=== PATIENT | male | born 1965 | race Caucasian/White ===

== ENCOUNTER 2018-10-22 17:11 | Inpatient (IN) | payer MEDICARE, OTHER ==
[~2018-10-22] VITALS: Ht 182.9 cm; Wt 119.7 kg
--- NOTE | 2018-10-22 17:55 | NUR ---
PT BIB [facility]. ON 515 FOR DANGER TO OTHERS, PER REPORT, THREATENING STAFF. PT IS AAOX3, NOT IN RESPIRATORY DISTRESS, V/S STABLE, KEPT RESTED AND COMFORTABLE, WILL CONTINUE TO MONITOR.
--- NOTE | 2018-10-22 17:56 | NUR ---
SEEN AND EXAMINED BY .
--- NOTE | 2018-10-22 18:10 | NUR ---
ER PHLEB AT BEDSIDE FOR BLOOD DRAW.
--- NOTE | 2018-10-22 18:15 | NUR ---
URINE SPECIMEN COLLECTED AND SENT TO LAB.
[2018-10-22 18:16] LABS: BASOPHILS # (AUTO) 0.1 /CMM (0.0-0.2); EOSINOPHILS % (AUTO) 3.1 % (0.0-6.0); HEMATOCRIT 43 % (39-51); HEMOGLOBIN 14.9 g/dL (13.5-17.5); LYMPHOCYTES # (AUTO) 2.9 /CMM (0.8-4.8); MEAN CORPUSCULAR HGB CONC 34 g/dl (31.0-36.0); MEAN CORPUSCULAR VOLUME 98 fL (80-96); MONOCYTES # (AUTO) 0.8 /CMM (0.1-1.30); MONOCYTES % (AUTO) 8.4 % (2.0-12.0); NEUTROPHILS # (AUTO) 5.6 /CMM (1.8-8.9); NEUTROPHILS % (AUTO) 57.5 % (43.0-81.0); PLATELET COUNT (AUTO) 269 /CMM (150-450); RED BLOOD CELL COUNT(AUTO) 4.43 MIL/uL (4.5-6.0); WHITE BLOOD COUNT (AUTO) 9.7 K/uL (4.3-11.0)
[2018-10-22 18:20] LABS: APPEARANCE,URINE Clear (CLEAR); BILIRUBIN,URINE Negative (NEGATIVE); BLOOD, URINE Negative Ery/uL (NEGATIVE); COLOR,URINE Yellow (YELLOW); KETONES,URINE Trace (NEGATIVE); LEUKOCYTE ESTERASE ,URINE Negative (NEGATIVE); NITRITE, URINE Negative (NEGATIVE); PH,URINE 6.5 (5.0-8.0); PROTEIN,URINE Negative (NEGATIVE); UGLUCOSE 500 MG/DL mg/dL (NEGATIVE); UROBILINOGEN,URINE 0.2 EU/dL (0.2)
--- NOTE | 2018-10-22 18:22 | NUR ---
GPS 212-B
[2018-10-22 18:31] LABS: CALCIUM, SERUM 8.8 mg/dL (8.5-10.1); CARBON DIOXIDE 26 mmol/L (21-32); CHLORIDE 102 mmol/L (98-107); GLUCOSE 232 mg/dL (74-106); POTASSIUM 4.3 mmol/L (3.5-5.1); SODIUM SERUM 136 mmol/L (136-145); UREA NITROGEN, BLOOD 8 mg/dL (7-18)
[2018-10-22 18:34] LABS: ALANINE AMINOTRANSFERASE 15 U/L (12-78); ALBUMIN 3.1 g/dL (3.4-5.0); ALKALINE PHOSPHATASE 73 U/L (46-116); ASPARTATE AMINOTRANSFERASE 12 U/L (15-37); BILIRUBIN,DIRECT 0.1 mg/dL (0.0-0.2); BILIRUBIN,TOTAL 0.2 mg/dL (0.2-1.0); SALICYLATE 3.7 mg/dL (2.8-20.0)
[2018-10-22 18:35] LABS: ACETAMINOPHEN < 5 ug/ml (10-30); ALCOHOL, BLOOD < 5 mg/dL (0-0)
[2018-10-22] MEDS ORDERED: HYDR25TA4 PO (19:57)
[2018-10-22] MEDS ORDERED: SIMV20TA6 PO (19:57)
[2018-10-22] MEDS ORDERED: ALBU18HF2 INH (19:57)
[2018-10-22] MEDS ORDERED: DIVA500T2 PO (19:57)
[2018-10-22] MEDS ORDERED: DIVA250T4 PO (19:57)
[2018-10-22] MEDS ORDERED: OLAN20TA3 PO (19:57)
[2018-10-22] MEDS ORDERED: GLIP10TA11 PO (19:57)
[2018-10-22] MEDS ORDERED: METF-441 PO (19:57)
[2018-10-22] MEDS ORDERED: INSU100V30 IJ (19:57)
[2018-10-22] MEDS ORDERED: LINA145C PO (19:57)
[2018-10-22] MEDS ORDERED: OLAN5TAB3 PO (19:57)
[2018-10-22] MEDS ORDERED: CHOL200026 PO (19:57)
[2018-10-22] MEDS ORDERED: BUDE10.2 INH (19:57)
[2018-10-22] MEDS ORDERED: LISI-607 PO (19:57)
[2018-10-22] MEDS ORDERED: INSU100V7 SQ ×2 (19:57)
--- NOTE | 2018-10-22 20:12 | NUR ---
REPORT GIVEN TO OCTAVIA RODGERS FOR [facility]. PT TO 212-2
--- NOTE | 2018-10-22 20:12 | NUR ---
PT SENT UP TO UNIT WITH EMT ON WHEELCHAIR. PT IS IN STABLE CONDITION.
[2018-10-22] MEDS ORDERED: MAGNESIUM HYDROXIDE 30 ML UDC PO PRN (21:30)
[2018-10-22] MEDS ORDERED: MAG HYDROX/AL HYDROX/SIMETH 30 ML UDC PO PRN (21:30)
[2018-10-22] MEDS ORDERED: ACETAMINOPHEN 325 MG TABLET PO PRN (21:30)
[2018-10-22] MEDS ORDERED: BLOOD SUGAR DIAGNOSTIC 1 EACH STRIP IN ONE (22:00)
--- NOTE | 2018-10-22 22:30 | NUR ---
ADMITTED THIS 53 YEARS OLD MALE FROM [facility] PATIENT BROUGHT IN UNIT BY WHEEL CHAIR ACCOMPANIED BY E.R STAFF PATIENT WAS PLACED ON 5150 HOLD , DUE TO DANGERS TO OTHER, TRYING TO THREAT THE STAFF IN [facility] . PATIENT IS ALERT, ORIENTED X 4 AMBULATORY TO BATHROOM WITH STEADY GAIT UPON FACE TO FACE ASSESSMENT PATIENT DENIES ANY SI/HI AT THIS TIME ADVISEMENT EXPLAIN AND GIVE TO THE PATIENT WITH HOSPITAL HANDBOOK AND POLICY PATIENT REFUSED TO SIGN THE CONSENT PAPER, DR. LOBO AND DR. CRAWFORD WAS NOTIFY REGARDING , PATIENT ADMISSION NO BEHAVIOR PROBLEM NOTED AT THIS TIME, WILL CONTINUES TO MONITOR THE PATIENTEVERY 15 MINS AND MAKE ROUND FOR PATIENT SAFETY AND FALL .
[2018-10-22] MEDS ORDERED: DEXTROSE 50%-WATER 50 ML DISP.SYRIN IV PRN (23:00)
[2018-10-23] MEDS: BLOOD SUGAR DIAGNOSTIC 1 EACH STRIP IN SCH ×4 (07:48→21:21)
[2018-10-23] MEDS: LORAZEPAM 1 MG TABLET PO PRN ×2 (07:58→21:20)
--- NOTE | 2018-10-23 07:58 | NUR ---
GPS/RN-NOTES NOTED PATIENT PACING IN AND OUT THE ROOM SWINGING BOTH HANDS IN THE AIR. STATED " WHEN CAN I BE DISCHARGE FROM THIS PLACE". STRIPING MACHINE OPERATOR REDIRECTED PATIENT AND OFFERED ATIVAN AND AGREED. ATIVAN 1MG P.O GIVEN PRN ORDER. WILL CONT. MONITORING FOR SAFETY AND BEHAVIOR.
[2018-10-23] MEDS: NICOTINE PATCH (21MG) 21 MG PATCH.TD24 TD SCH (08:33)
[2018-10-23] MEDS: METFORMIN 850 MG TABLET PO SCH ×2 (08:33→16:15)
[2018-10-23] MEDS: glipiZIDE 10 MG TABLET PO SCH ×2 (08:33→16:15)
[2018-10-23] MEDS: LISINOPRIL (5MG) 5 MG TABLET PO SCH (08:33)
[2018-10-23] MEDS: HYDROCHLOROTHIAZIDE 25 MG TABLET PO SCH (08:34)
[2018-10-23] MEDS: INSULIN GLARGINE, 100 UNIT/ML CARTRIDGE SQ SCH ×3 (08:39→22:10)
[2018-10-23] MEDS: CHOLECALCIFEROL 1,000 UNIT TABLET (VIT D3) PO SCH (08:45)
[2018-10-23] MEDS: FLUTICASONE/VILANTEROL 1 EACH BLST.W.DEV IH SCH (08:48)
[2018-10-23] MEDS ORDERED: DIVALPROEX SODIUM 250 MG TABLET.DR PO SCH (09:00)
[2018-10-23] MEDS ORDERED: LINACLOTIDE (LINZESS) 145 MCG PO SCH (09:00)
--- NOTE | 2018-10-23 09:00 | NUR ---
GPS/RN-NOTES PATIENT LAYING IN BED INTERMITTENTLY SLEEPING. CALM,NO ACUTE DISTRESS NOTED.
--- NOTE | 2018-10-23 09:30 | NUR ---
SW received a call from Mami, zoning administrator at [facility] Address: [address], [place] [address] stating that pt cannot return to the facility due to his aggressive behavior.
--- NOTE | 2018-10-23 10:00 | NUR ---
GIRISH contacted Morelia Gaytan pts Public Guardian [phone] and left a voicemail requesting conservatorship documentation and detain and treat paperwork.
[2018-10-23 13:25] LABS: THYROID STIMULATING HORMONE 1.881 uIU/mL (0.358-3.74)
[2018-10-23] MEDS: ALBUTEROL FS 2.5 MG/0.5 ML VIAL.NEB NEB SCH ×3 (13:43→22:32)
--- NOTE | 2018-10-23 15:09 | NUR ---
GPS/RN-NOTES PATIENT'S MOTHER ESETPHANIE BARBOSA ) MADE AWARE OF PATIENT ADMISSION.
--- NOTE | 2018-10-23 15:16 | NUR ---
GROUP NOTE: SW prompted pt to attend group on 10/23/18 at 2:30pm discussing managing mental health by being compliant with medication for while they are in the hospital and after discharge, but pt declined to participate.
--- NOTE | 2018-10-23 15:24 | NUR ---
GIRISH contacted pts Mother Mary Lou [phone] and discussed pts treatment and discharge plan. Pts mother stated she was unable to assist with pts discharge as she is elderly and has medical issues of her own.
--- NOTE | 2018-10-23 15:42 | NUR ---
INITIAL DISCHARGE PLAN: Patient needs Board and Care of SNF placement as [facility] Address: [address], [place] [address] does not want to accept him back due to his aggressive behavior. SW will help form a safe and proper discharge in collaboration with MD.
[2018-10-23] MEDS: DIVALPROEX SODIUM 250 MG TABLET.DR PO SCH (16:15)
[2018-10-23] MEDS: SIMVASTATIN 20 MG TABLET PO SCH (17:29)
[2018-10-23] MEDS: INSULIN REGULAR, HUMAN 100 UNIT/ML 3 ML VIAL SQ PRN ×2 (17:30→21:23)
[2018-10-23 20:34] VITALS: BP 134/70
[2018-10-23] MEDS ORDERED: DIVALPROEX SODIUM 500 MG TABLET.DR PO SCH (22:00)
[2018-10-23] MEDS: OLANZAPINE 10 MG TABLET PO SCH (22:06)
[2018-10-23] MEDS: DIVALPROEX SODIUM 500 MG TABLET.DR PO SCH (22:06)
[2018-10-23] MEDS: TEMAZEPAM 7.5 MG CAPSULE PO PRN (23:34)
[2018-10-24] MEDS: ALBUTEROL FS 2.5 MG/0.5 ML VIAL.NEB NEB SCH ×3 (07:35→23:30)
[2018-10-24] MEDS: BLOOD SUGAR DIAGNOSTIC 1 EACH STRIP IN SCH ×4 (07:38→21:44)
[2018-10-24 08:00] VITALS: BP 130/70
[2018-10-24] MEDS: LORAZEPAM 1 MG TABLET PO PRN ×2 (08:44→14:50)
[2018-10-24] MEDS: DIVALPROEX SODIUM 250 MG TABLET.DR PO SCH ×2 (08:44→16:33)
[2018-10-24] MEDS: FLUTICASONE/VILANTEROL 1 EACH BLST.W.DEV IH SCH (08:44)
[2018-10-24] MEDS: CHOLECALCIFEROL 1,000 UNIT TABLET (VIT D3) PO SCH (08:44)
[2018-10-24] MEDS: LISINOPRIL (5MG) 5 MG TABLET PO SCH (08:45)
[2018-10-24] MEDS: HYDROCHLOROTHIAZIDE 25 MG TABLET PO SCH (08:45)
[2018-10-24] MEDS: METFORMIN 850 MG TABLET PO SCH ×2 (08:45→16:33)
[2018-10-24] MEDS: NICOTINE PATCH (21MG) 21 MG PATCH.TD24 TD SCH (08:45)
[2018-10-24] MEDS: glipiZIDE 10 MG TABLET PO SCH ×2 (08:45→16:33)
[2018-10-24] MEDS: OLANZAPINE 5 MG TABLET PO SCH (08:49)
[2018-10-24] MEDS: INSULIN GLARGINE, 100 UNIT/ML CARTRIDGE SQ SCH ×2 (09:01→21:45)
[2018-10-24 13:42] LABS: BASOPHILS # (AUTO) 0.1 /CMM (0.0-0.2); BASOPHILS % (AUTO) 1.2 % (0.0-2.0); EOSINOPHILS % (AUTO) 1.6 % (0.0-6.0); HEMATOCRIT 48 % (39-51); HEMOGLOBIN 16.4 g/dL (13.5-17.5); LYMPHOCYTES # (AUTO) 2.6 /CMM (0.8-4.8); LYMPHOCYTES % (AUTO) 24.6 % (20.0-44.0); MEAN CORPUSCULAR HGB CONC 34 g/dl (31.0-36.0); MEAN CORPUSCULAR VOLUME 96 fL (80-96); MONOCYTES # (AUTO) 0.8 /CMM (0.1-1.30); MONOCYTES % (AUTO) 7.5 % (2.0-12.0); NEUTROPHILS % (AUTO) 65.1 % (43.0-81.0); PLATELET COUNT (AUTO) 279 /CMM (150-450); RED BLOOD CELL COUNT(AUTO) 4.96 MIL/uL (4.5-6.0); WHITE BLOOD COUNT (AUTO) 10.7 K/uL (4.3-11.0)
[2018-10-24 13:57] LABS: BILIRUBIN,TOTAL 0.5 mg/dL (0.2-1.0); CALCIUM, SERUM 9.4 mg/dL (8.5-10.1); CREATININE 0.9 mg/dL (0.6-1.3); POTASSIUM 4.1 mmol/L (3.5-5.1); TOTAL PROTEIN, SERUM 7.2 g/dL (6.4-8.2)
--- NOTE | 2018-10-24 14:46 | NUR ---
DR. LOBO GAVE AN ORDER TO CHANGE STATUS TO CONSERVATORSHIP.
--- NOTE | 2018-10-24 14:50 | NUR ---
GPS/RN-NOTES PATIENT PACING IN THE UNIT, RESTLESS,ANXIOUS ATIVAN 1MG P.O GIVEN PRN ORDER. WILL CONT. MONITORING FOR SAFETY AND BEHAVIOR.
[2018-10-24 16:00] VITALS: BP 125/82
[2018-10-24] MEDS: INSULIN REGULAR, HUMAN 100 UNIT/ML 3 ML VIAL SQ PRN (16:46)
[2018-10-24] MEDS: SIMVASTATIN 20 MG TABLET PO SCH (17:38)
[2018-10-24 20:17] VITALS: BP 116/44
[2018-10-24] MEDS: DIVALPROEX SODIUM 500 MG TABLET.DR PO SCH (21:44)
[2018-10-24] MEDS: OLANZAPINE 10 MG TABLET PO SCH (21:44)
[2018-10-25] MEDS: ALBUTEROL FS 2.5 MG/0.5 ML VIAL.NEB NEB SCH ×3 (07:35→23:30)
[2018-10-25] MEDS: BLOOD SUGAR DIAGNOSTIC 1 EACH STRIP IN SCH ×4 (07:45→21:56)
[2018-10-25 08:00] VITALS: BP 107/55
[2018-10-25] MEDS: FLUTICASONE/VILANTEROL 1 EACH BLST.W.DEV IH SCH (08:41)
[2018-10-25] MEDS: glipiZIDE 10 MG TABLET PO SCH ×2 (08:43→16:16)
[2018-10-25] MEDS: INSULIN GLARGINE, 100 UNIT/ML CARTRIDGE SQ SCH ×2 (08:43→21:56)
[2018-10-25] MEDS: NICOTINE PATCH (21MG) 21 MG PATCH.TD24 TD SCH (08:44)
[2018-10-25] MEDS: DIVALPROEX SODIUM 250 MG TABLET.DR PO SCH ×2 (08:44→16:17)
[2018-10-25] MEDS: CHOLECALCIFEROL 1,000 UNIT TABLET (VIT D3) PO SCH (08:44)
[2018-10-25] MEDS: METFORMIN 850 MG TABLET PO SCH ×2 (08:44→16:17)
[2018-10-25] MEDS: LORAZEPAM 1 MG TABLET PO PRN ×2 (08:45→16:16)
[2018-10-25] MEDS: HYDROCHLOROTHIAZIDE 25 MG TABLET PO SCH (08:47)
[2018-10-25] MEDS: LISINOPRIL (5MG) 5 MG TABLET PO SCH (08:48)
[2018-10-25] MEDS: OLANZAPINE 5 MG TABLET PO SCH (08:52)
--- NOTE | 2018-10-25 09:29 | NUR ---
GPS RN NOTES PATIENT PACING IN THE UNIT, RESTLESS, ANXIOUS, AND YELLING AT STAFF. ATIVAN 1MG P.O GIVEN PRN ORDER. WILL CONTINUE MONITORING FOR SAFETY AND BEHAVIOR.
[2018-10-25] MEDS: INSULIN REGULAR, HUMAN 100 UNIT/ML 3 ML VIAL SQ PRN ×3 (11:55→21:58)
[2018-10-25 16:00] VITALS: BP 121/67
[2018-10-25] MEDS: SIMVASTATIN 20 MG TABLET PO SCH (17:04)
[2018-10-25 20:00] VITALS: BP 137/66
[2018-10-25] MEDS: OLANZAPINE 10 MG TABLET PO SCH (21:55)
[2018-10-25] MEDS: DIVALPROEX SODIUM 500 MG TABLET.DR PO SCH (21:55)
[2018-10-26] MEDS: TEMAZEPAM 7.5 MG CAPSULE PO PRN (02:01)
[2018-10-26] MEDS: ALBUTEROL FS 2.5 MG/0.5 ML VIAL.NEB NEB SCH ×3 (08:30→23:30)
[2018-10-26] MEDS: CHOLECALCIFEROL 1,000 UNIT TABLET (VIT D3) PO SCH (08:41)
[2018-10-26] MEDS: METFORMIN 850 MG TABLET PO SCH ×2 (08:41→17:15)
[2018-10-26] MEDS: OLANZAPINE 5 MG TABLET PO SCH ×2 (08:41→17:15)
[2018-10-26] MEDS: glipiZIDE 10 MG TABLET PO SCH ×2 (08:41→17:15)
[2018-10-26] MEDS: BLOOD SUGAR DIAGNOSTIC 1 EACH STRIP IN SCH ×4 (08:41→21:25)
[2018-10-26] MEDS: NICOTINE PATCH (21MG) 21 MG PATCH.TD24 TD SCH (08:42)
[2018-10-26] MEDS: DIVALPROEX SODIUM 250 MG TABLET.DR PO SCH ×2 (08:42→17:15)
[2018-10-26] MEDS: HYDROCHLOROTHIAZIDE 25 MG TABLET PO SCH (08:49)
[2018-10-26] MEDS: FLUTICASONE/VILANTEROL 1 EACH BLST.W.DEV IH SCH (08:50)
[2018-10-26] MEDS: LORAZEPAM 1 MG TABLET PO PRN (08:50)
--- NOTE | 2018-10-26 08:50 | NUR ---
rn notes administered Ativan 1 mg po prn for anxiety, irritable, per patient request, v/s taken bp 113/78, p-102, continued monitoring.
[2018-10-26] MEDS: LISINOPRIL (5MG) 5 MG TABLET PO SCH (08:52)
[2018-10-26] MEDS: INSULIN GLARGINE, 100 UNIT/ML CARTRIDGE SQ SCH ×2 (09:00→21:30)
--- NOTE | 2018-10-26 14:17 | NUR ---
RN NOTES PATIENT VERY ANXIOUS WALKING UP AND DOWN IN THE HALLWAY, IRRITABLE, TALKING SELF, KEEP ASKING COFFEE , UNPREDICTABLE. PER PSYCHIATRIST Dr ZARATE VERBALLY ORDERED ATIVAN 1 MG PO PRN X1 NOW. ORDER TAKEN AND CARRIED OUT.
--- NOTE | 2018-10-26 14:24 | NUR ---
RN NOTES ADMINISTERED ATIVAN 1 MG PO TIME ONE NOW FOR PARANOIA, ANXIETY PER PSYCHIATRISTS ORDER. PATIENT REFUSED V/S TO BE TAKEN. CONTINUED MONITORING.
[2018-10-26] MEDS ORDERED: LORAZEPAM 1 MG TABLET PO ONE (14:30)
[2018-10-26 16:00] VITALS: BP 108/84
[2018-10-26] MEDS: INSULIN REGULAR, HUMAN 100 UNIT/ML 3 ML VIAL SQ PRN ×2 (17:19→21:29)
[2018-10-26] MEDS ORDERED: FIXODENT 1 EA TUBE MM PRN (17:30)
[2018-10-26] MEDS: SIMVASTATIN 20 MG TABLET PO SCH (18:29)
[2018-10-26 20:04] VITALS: BP 120/80
[2018-10-26] MEDS: OLANZAPINE 10 MG TABLET PO SCH (21:26)
[2018-10-26] MEDS: DIVALPROEX SODIUM 500 MG TABLET.DR PO SCH (21:26)
--- NOTE | 2018-10-26 23:40 | NUR ---
GPS RN NOTES:PT. BS 155 MG/DL, PT. REFUSED TO SCHEDULE LANTUS INSULLIN , ENCOURAGED , EXPLAINED RISKS AND BENEFITS, , STRONGLY REFUSED. PER PT.MY BS IS FINE ,I DONT WANT TAKING LANTUS INSULLIN.
--- NOTE | 2018-10-27 01:10 | NUR ---
GPS RN NOTES: PT. REFUSED WEEKLY SKIN REASSMENT AND PICTURES , PER PT.MY SKIN IS OK , NO NEEDS TO CHECK, ENCOURAGED EXPLINED RISKS AND BENEFITS , STILL REFUSED.
[2018-10-27] MEDS: ALBUTEROL FS 2.5 MG/0.5 ML VIAL.NEB NEB SCH ×3 (07:35→23:30)
[2018-10-27 08:00] VITALS: BP 121/84
[2018-10-27] MEDS: BLOOD SUGAR DIAGNOSTIC 1 EACH STRIP IN SCH ×4 (08:49→22:15)
[2018-10-27] MEDS: INSULIN REGULAR, HUMAN 100 UNIT/ML 3 ML VIAL SQ PRN ×2 (08:49→22:23)
[2018-10-27] MEDS: CHOLECALCIFEROL 1,000 UNIT TABLET (VIT D3) PO SCH (08:59)
[2018-10-27] MEDS: HYDROCHLOROTHIAZIDE 25 MG TABLET PO SCH (08:59)
[2018-10-27] MEDS: OLANZAPINE 5 MG TABLET PO SCH ×2 (08:59→17:04)
[2018-10-27] MEDS: NICOTINE PATCH (21MG) 21 MG PATCH.TD24 TD SCH (08:59)
[2018-10-27] MEDS: DIVALPROEX SODIUM 250 MG TABLET.DR PO SCH ×2 (08:59→17:05)
[2018-10-27] MEDS: glipiZIDE 10 MG TABLET PO SCH ×2 (08:59→17:05)
[2018-10-27] MEDS: METFORMIN 850 MG TABLET PO SCH ×2 (09:00→17:05)
[2018-10-27] MEDS: LISINOPRIL (5MG) 5 MG TABLET PO SCH (09:00)
[2018-10-27] MEDS: FLUTICASONE/VILANTEROL 1 EACH BLST.W.DEV IH SCH (09:04)
[2018-10-27] MEDS: INSULIN GLARGINE, 100 UNIT/ML CARTRIDGE SQ SCH ×2 (09:08→22:20)
[2018-10-27] MEDS: LORAZEPAM 1 MG TABLET PO PRN ×3 (10:06→19:40)
--- NOTE | 2018-10-27 11:37 | NUR ---
GIRISH faxed referral to [facility] Address: [address] [place] [address] for board and care placement.
--- NOTE | 2018-10-27 11:40 | NUR ---
GIRISH faxed SNF referral to [facility] Address: [address] [place] [address] Fax: [phone] for review.
--- NOTE | 2018-10-27 13:00 | NUR ---
SW contacted [facility] Address: [facility], [address] [place] [address] per pts request and spoke with Ulises, social work administrator who stated there are no beds available.
--- NOTE | 2018-10-27 13:03 | NUR ---
INDIVIDUAL COUNSELING: SW spoke with pt regarding his discharge plan, pt wants to be discharged to a sober living and SW explained that due to him being under public guardianship he is unable to go to a sober living. SW explained that he can either be discharged to a board and care for a SNF. Pt agreed.
--- NOTE | 2018-10-27 13:31 | NUR ---
SW received a call from Dorene, cancer program coordinator at [facility] Address: [address] [place] [address] stating pt has been accepted to the facility.
[2018-10-27 16:00] VITALS: BP 101/70
[2018-10-27] MEDS: SIMVASTATIN 20 MG TABLET PO SCH (17:04)
[2018-10-27 19:51] VITALS: BP 99/53
[2018-10-27] MEDS: OLANZAPINE 10 MG TABLET PO SCH (21:31)
[2018-10-27] MEDS: DIVALPROEX SODIUM 500 MG TABLET.DR PO SCH (21:31)
[2018-10-27] MEDS: TEMAZEPAM 7.5 MG CAPSULE PO PRN (21:31)
[2018-10-28] MEDS: ALBUTEROL FS 2.5 MG/0.5 ML VIAL.NEB NEB SCH ×3 (07:06→23:30)
[2018-10-28] MEDS: BLOOD SUGAR DIAGNOSTIC 1 EACH STRIP IN SCH ×4 (07:30→22:31)
[2018-10-28 08:00] VITALS: BP 127/79
[2018-10-28] MEDS: INSULIN GLARGINE, 100 UNIT/ML CARTRIDGE SQ SCH ×2 (09:00→22:30)
[2018-10-28] MEDS: DIVALPROEX SODIUM 250 MG TABLET.DR PO SCH ×2 (09:00→17:00)
[2018-10-28] MEDS: METFORMIN 850 MG TABLET PO SCH ×2 (09:00→17:00)
[2018-10-28] MEDS: NICOTINE PATCH (21MG) 21 MG PATCH.TD24 TD SCH (09:00)
[2018-10-28] MEDS: glipiZIDE 10 MG TABLET PO SCH ×2 (09:00→17:00)
[2018-10-28] MEDS: OLANZAPINE 5 MG TABLET PO SCH ×2 (09:00→17:00)
[2018-10-28] MEDS: HYDROCHLOROTHIAZIDE 25 MG TABLET PO SCH (09:00)
[2018-10-28] MEDS: LISINOPRIL (5MG) 5 MG TABLET PO SCH (09:00)
[2018-10-28] MEDS: CHOLECALCIFEROL 1,000 UNIT TABLET (VIT D3) PO SCH (09:00)
[2018-10-28] MEDS: FLUTICASONE/VILANTEROL 1 EACH BLST.W.DEV IH SCH (09:00)
[2018-10-28 16:00] VITALS: BP 116/80
[2018-10-28] MEDS: INSULIN REGULAR, HUMAN 100 UNIT/ML 3 ML VIAL SQ PRN (18:06)
[2018-10-28] MEDS: SIMVASTATIN 20 MG TABLET PO SCH (18:07)
[2018-10-28 21:33] VITALS: BP 120/77
[2018-10-28] MEDS: OLANZAPINE 10 MG TABLET PO SCH (22:31)
[2018-10-29] MEDS: BLOOD SUGAR DIAGNOSTIC 1 EACH STRIP IN SCH ×4 (07:31→21:04)
[2018-10-29] MEDS: ALBUTEROL FS 2.5 MG/0.5 ML VIAL.NEB NEB SCH ×3 (07:35→23:30)
[2018-10-29 08:00] VITALS: BP 100/59
[2018-10-29] MEDS: CHOLECALCIFEROL 1,000 UNIT TABLET (VIT D3) PO SCH (08:09)
[2018-10-29] MEDS: DIVALPROEX SODIUM 500 MG TABLET.DR PO SCH ×3 (08:10→21:09)
--- NOTE | 2018-10-29 08:10 | NUR ---
GPS/RN - Accu-check Accu-check done noted with blood glucose 56 mg/dL at 08:09. Patient is asymptomatic, A/O x 4, denies palpitations, shakiness, lightheadedness, sweating. Patient was given orange juice and eating breakfast at this time. Will re-check blood sugar within one hour.
[2018-10-29] MEDS: NICOTINE PATCH (21MG) 21 MG PATCH.TD24 TD SCH (08:51)
[2018-10-29] MEDS: OLANZAPINE 5 MG TABLET PO SCH ×2 (08:51→17:01)
[2018-10-29] MEDS: METFORMIN 850 MG TABLET PO SCH ×2 (08:52→17:01)
[2018-10-29] MEDS: HYDROCHLOROTHIAZIDE 25 MG TABLET PO SCH (08:52)
[2018-10-29] MEDS: glipiZIDE 10 MG TABLET PO SCH ×2 (08:52→17:01)
[2018-10-29] MEDS: INSULIN GLARGINE, 100 UNIT/ML CARTRIDGE SQ SCH ×2 (08:52→21:08)
[2018-10-29] MEDS: LISINOPRIL (5MG) 5 MG TABLET PO SCH (08:52)
[2018-10-29] MEDS: FLUTICASONE/VILANTEROL 1 EACH BLST.W.DEV IH SCH (08:53)
[2018-10-29] MEDS: INSULIN REGULAR, HUMAN 100 UNIT/ML 3 ML VIAL SQ PRN ×3 (08:56→21:09)
[2018-10-29 09:04] VITALS: BP 100/59
--- NOTE | 2018-10-29 13:55 | NUR ---
GROUP NOTE Goal: Patient will attend group being held today from 11AM-11:45AM in the activities room and participate and/or actively listen to peers and be respectful. Intervention: SW invited patient to attend group session with peers regarding their support system. SW respected patient�s self-determination and will continue to invite patient to group. Response: Patient declined to participate in today�s group social service assistant session. Plan: Patient will be invited to attend next social service assistant group session held.
[2018-10-29 16:00] VITALS: BP 131/77
[2018-10-29] MEDS: SIMVASTATIN 20 MG TABLET PO SCH (17:01)
[2018-10-29 20:06] VITALS: BP 123/73
[2018-10-29] MEDS: OLANZAPINE 10 MG TABLET PO SCH (21:00)
[2018-10-30] MEDS: BLOOD SUGAR DIAGNOSTIC 1 EACH STRIP IN SCH ×4 (07:32→21:24)
[2018-10-30] MEDS: ALBUTEROL FS 2.5 MG/0.5 ML VIAL.NEB NEB SCH ×3 (07:35→23:30)
[2018-10-30 08:00] VITALS: BP 115/95
[2018-10-30] MEDS: CHOLECALCIFEROL 1,000 UNIT TABLET (VIT D3) PO SCH (08:30)
[2018-10-30] MEDS: OLANZAPINE 5 MG TABLET PO SCH ×2 (08:30→16:28)
[2018-10-30] MEDS: LORAZEPAM 1 MG TABLET PO PRN ×3 (08:30→21:22)
[2018-10-30] MEDS: FLUTICASONE/VILANTEROL 1 EACH BLST.W.DEV IH SCH (08:30)
[2018-10-30] MEDS: METFORMIN 850 MG TABLET PO SCH ×2 (08:31→16:28)
[2018-10-30] MEDS: glipiZIDE 10 MG TABLET PO SCH ×2 (08:31→16:28)
[2018-10-30] MEDS: LISINOPRIL (5MG) 5 MG TABLET PO SCH (08:31)
[2018-10-30] MEDS: DIVALPROEX SODIUM 500 MG TABLET.DR PO SCH ×3 (08:31→21:22)
[2018-10-30] MEDS: HYDROCHLOROTHIAZIDE 25 MG TABLET PO SCH (08:31)
[2018-10-30] MEDS: INSULIN GLARGINE, 100 UNIT/ML CARTRIDGE SQ SCH (08:32)
[2018-10-30] MEDS: NICOTINE PATCH (21MG) 21 MG PATCH.TD24 TD SCH (08:48)
[2018-10-30 16:00] VITALS: BP 116/68
[2018-10-30] MEDS: SIMVASTATIN 20 MG TABLET PO SCH (16:29)
[2018-10-30] MEDS: INSULIN REGULAR, HUMAN 100 UNIT/ML 3 ML VIAL SQ PRN (16:30)
[2018-10-30 20:00] VITALS: BP 109/59
[2018-10-30] MEDS: OLANZAPINE 10 MG TABLET PO SCH (21:22)
--- NOTE | 2018-10-30 21:30 | NUR ---
GPS RN NOTE: PATIENT ANXIOUS AND PACING HALLWAY WAITING TO BE SEEN BY MD. ATIVAN 1MG ORAL GIVEN PER ORDER. WILL CONTINUE TO MONITOR.
[2018-10-30] MEDS ORDERED: INSULIN GLARGINE, 100 UNIT/ML CARTRIDGE SQ SCH (22:00)
--- NOTE | 2018-10-30 22:00 | NUR ---
GPS RN NOTE: PATIENT SEEN BY DR. LOBO, PATIENT CLEARED TO BE DISCHARGED TOMORROW. CASE MANAGEMENT TO CONTINUE TO COORDINATE DISCHARGE. WILL CONTINUE TO MONITOR.
--- NOTE | 2018-10-30 22:30 | NUR ---
GPS RN NOTE: PATIENT BLOOD SUGAR LEVEL 121MG/DL, NO INSULIN NEEDED PER SLIDING SCALE. PATIENT REFUSED LANTUS, EXPLAINED RISK AND BENEFITS BUT CONTINUES TO REFUSE. NO S/S OF HYPO/HYPERGLYCEMIA NOTED. SNACKS PROVIDED. WILL CONTINUE TO MONITOR.
[2018-10-31] MEDS: BLOOD SUGAR DIAGNOSTIC 1 EACH STRIP IN SCH ×2 (07:30→11:59)
[2018-10-31] MEDS: ALBUTEROL FS 2.5 MG/0.5 ML VIAL.NEB NEB SCH (07:35)
[2018-10-31 08:00] VITALS: BP 108/66
--- NOTE | 2018-10-31 08:51 | NUR ---
GIRISH contacted Morelia Gaytan pts Public Guardian [phone] and informed her that pt will be discharged on this present day to [facility]. Morelia agreed with discharge plan.
[2018-10-31] MEDS: INSULIN GLARGINE, 100 UNIT/ML CARTRIDGE SQ SCH (08:56)
[2018-10-31 09:04] VITALS: BP 108/66
[2018-10-31] MEDS: LISINOPRIL (5MG) 5 MG TABLET PO SCH (09:04)
[2018-10-31] MEDS: FLUTICASONE/VILANTEROL 1 EACH BLST.W.DEV IH SCH (09:04)
[2018-10-31] MEDS: NICOTINE PATCH (21MG) 21 MG PATCH.TD24 TD SCH (09:05)
[2018-10-31] MEDS: DIVALPROEX SODIUM 500 MG TABLET.DR PO SCH ×2 (09:05→12:15)
[2018-10-31] MEDS: HYDROCHLOROTHIAZIDE 25 MG TABLET PO SCH (09:05)
[2018-10-31] MEDS: glipiZIDE 10 MG TABLET PO SCH (09:05)
[2018-10-31] MEDS: OLANZAPINE 5 MG TABLET PO SCH (09:05)
[2018-10-31] MEDS: CHOLECALCIFEROL 1,000 UNIT TABLET (VIT D3) PO SCH (09:05)
[2018-10-31] MEDS: METFORMIN 850 MG TABLET PO SCH (09:05)
--- NOTE | 2018-10-31 09:09 | NUR ---
DISCHARGE NOTE: Pt will be discharged at 1:00pm via [facility] to [facility] Address: [address] [place] [address] . Morelia Gaytan pts Public Guardian [phone] has been notified and agrees with discharge plan. Pt will address his substance use with Psychiatrist: Dr. Kennedy Address: [address] [place] [address] Phone: [phone] and be under the care of Ms Access Database Developer: Dr Ortiz Address: [address] [address] [phone]. For smoking cessation, patient was referred to the [employer] and [employer] [id number]. Pt will also participate in a telephone meeting with [employer] [phone] on Wednesday October 31, 2018 at 8:00am. The multidisciplinary exit care form was done, printed, signed, and given to the patient.
--- NOTE | 2018-10-31 09:12 | NUR ---
DR. LOBO GAVE AN ORDER TO D/C PT. TO [facility] AND TO FOLLOW UP WITH PSYCH AND MEDICAL DOCTORS.
--- NOTE | 2018-10-31 11:30 | NUR ---
gps technology director: notes discharged instructions given to pt and all d'c papers signed. pt's conservator made aware by long term care social worker re: d'c to [facility]. report given to popeye (rn) for continuity of care. eta at 1300, pt aware.
--- NOTE | 2018-10-31 11:45 | NUR ---
gps top trimmer: notes lamine miles (acnp) notified and made aware re: d'c to snf this afternoon with order to continue home medications (medical). order carried out.
--- NOTE | 2018-10-31 12:00 | NUR ---
gps accounting instructor: notes pt still refuses for skin assessment. pt stable for discharge. denies si/hi and denies auditory/visual hallucinations at this time.
--- NOTE | 2018-10-31 13:25 | NUR ---
gps director operating room: notes ambulance here and report given to one of the crew. pt stable for discharge. all valuables returned to pt. d'c papers given to ambulance crew.
--- NOTE | 2018-10-31 13:30 | NUR ---
gps as400 consultant: discharged discharged to snf via ambulance in stable condition with all d'c papers and valuables accompanied by 2 crew.
== END 2018-10-31 13:30 | DRG 885 ==
LOC: ER 17:21 → GPS 18:47
PROVIDERS: ADMIT Psychiatry & Neurology Psychiatry; ATTEND Student in an Organized Health Care Education/Training Program
DX: F25.9 Schizoaffective disorder, unspecified (principal); F29 Unspecified psychosis not due to a substance or known physiological condition; E78.5 Hyperlipidemia, unspecified; I10 Essential (primary) hypertension; J44.9 Chronic obstructive pulmonary disease, unspecified; F15.10 Other stimulant abuse, uncomplicated; E66.01 Morbid (severe) obesity due to excess calories; Z68.35 Body mass index [BMI] 35.0-35.9, adult; Z91.14 Patient's other noncompliance with medication regimen; E11.9 Type 2 diabetes mellitus without complications; F17.210 Nicotine dependence, cigarettes, uncomplicated; F41.9 Anxiety disorder, unspecified
CPT/HCPCS: 36415; 80048-TC; 80053-TC; 80061-TC; 80076-TC; 80164-TC; 80305; 81000-TC; 82962-TC; 84443-TC; 85025-TC; 87081-TC; G0480; J1815